=== PATIENT | female | born 1965 | race Caucasian/White ===

== ENCOUNTER → 2016-11-28 | Outpatient (CLI) | payer MEDICAID ==
--- NOTE | 2016-11-28 11:02 | MA ---
Screening Digital Mammogram Clinical Indications: Routine screening. Technique: Standard cephalocaudal and mediolateral oblique projections are obtained. This examinati on is processed by the [employer] computer aided detection system. Comparison: April 2015, June 2014 and April 2010 Breast density: B; There are scattered fibroglandular densities. Findings: CAD was reviewed. No suspicious findings are identified. Impression: Negative mammogram. . BI-RADS 1. Recommendation: Routine screening is recommended in one year. [facility] will send a result letter to the patient. Negative mammography should not preclude additional workup of a clinically suspicious finding. The patient's information is entered into a reminder system with a target due date for her next mammo gram.
== END ==
LOC: CIMAGING 09:59
DX: Z12.31 Encounter for screening mammogram for malignant neoplasm of breast (principal)
CPT/HCPCS: G0202

== ENCOUNTER 2017-07-05 17:42 | Emergency (ER) | payer MEDICAID ==
[2017-07-05 17:52] VITALS: RESP 16; TEMP 98.1
--- NOTE | 2017-07-05 17:54 | CPEKG ---
Heart Rate: 80 RR Interval: 750 P-R Interval: 180 QRSD Interval: 82 QT Interval: 368 QTC Interval: 425 P [place]: 38 QRS [place]: 25 T Wave [place]: 26 EKG Severity - BORDERLINE ECG - EKG Impression: SINUS RHYTHM EKG Impression: BORDERLINE T ABNORMALITIES, ANTERIOR LEADS Electronically Signed By: Preethi Moss 05-Jul-2017 18:42:57
[2017-07-05] MEDS ORDERED: NS 1,000 ML IV ONE (18:03)
[2017-07-05] MEDS ORDERED: ASPIRIN 81 MG CHEWABLE TAB PO ONE (18:03)
[2017-07-05 18:10] LABS: % IMMATURE GRANULYOCYTES 0.1 % (0.0-1.1); ABSOLUTE IMMATURE GRANULOCYTES 0.01 10^3/uL (0.00-0.10); ADD DIFF? NO; ADD MORPH? NO; ADD SCAN? NO; ATYPICAL LYMPHOCYTE FLAG 0 (0-99); FRAGMENT RBC FLAG 0 (0-99); HEMATOCRIT 42.5 % (38.0-47.0); HEMOGLOBIN 14.9 g/dL (12.6-16.3); LEFT SHIFT FLG 0 (0-99); LIPEMIA HEMOLYSIS FLAG 90 (0-99); MEAN CELL HEMOGLOBIN 31.2 pg (27.9-34.1); MEAN CELL HEMOGLOBIN CONCENTR. 35.1 g/dL (32.4-36.7); MEAN CELL VOLUME 89.1 fL (81.5-99.8); MEAN PLATELET VOLUME 9.1 fL (8.7-11.7); PLATELET CLUMPS FLAG 10 (0-99); PLATELET COUNT 302 10^3/uL (150-400); RED BLOOD CELL COUNT 4.77 10^6/uL (4.18-5.33); RED CELL DISTRIBUTION WIDTH 11.7 % (11.5-15.2)
--- NOTE | 2017-07-05 18:18 | EDPHY ---
H & P Stated Complaint: palpitations x 2 wk and near syncope yesterday Time Seen by Provider: 07/05/17 17:59 HPI/ROS: CHIEF COMPLAINT: Chest fluttering History by patient HISTORY OF PRESENT ILLNESS: 52 old woman with a history of hypertension presents complaining of a fluttery feeling in her chest which has been going on intermittently for the past 2 weeks. Yesterday she had an episode where she was unpacking a box and when she stood up she felt dizzy, felt that her heart was fluttering and she thought she was going to pass out. She had to sit down and rest for several minutes until she felt normal again. Sometimes when she gets this fluttery feeling she also feels like she can breathe properly. She denies any chest pain or pressure. She denies any leg pain or swelling. She has had no fever or cough. She has not taken her pulse when she has had the symptoms. Patient quit smoking more than 30 years ago. She has no first- degree relatives with heart disease, sudden or blood clotting. Patient walks 3 miles a day and does not get the symptoms with walking. She cannot identify any triggering factors. Patient and her both note that she has significant multiple social stressors including business difficulty, her unemployed without income and difficulties with her adult children. She says multiple family members including her sister and her mother have significant anxiety. Patient states she tried to go see her primary care physician about this however she was referred to the emergency department instead. REVIEW OF SYSTEMS: As in HPI, and all other systems reviewed and are negative Source: Patient, Family - Personal History LMP (Females 10-55): Post Menopausal - Medical/Surgical History Hx Asthma: No Hx Chronic Respiratory Disease: No Hx Diabetes: No Hx Cardiac Disease: No Hx Renal Disease: No Hx Cirrhosis: No Hx Alcoholism: No Hx HIV/AIDS: No Hx Splenectomy or Spleen Trauma: No Other PMH: HTN. Tonsils - Family History Significant Family History: No pertinent family hx - Social History Smoking Status: Never smoked - Physical Exam Exam: General Appearance: Alert, well-appearing. Eyes: Pupils equal and round no pallor or injection. ENT, Mouth: Mucous membranes moist. Respiratory: Normal, effort, lungs are clear to auscultation. No wheezes, rales or rhonchi. Cardiovascular: Regular rate and rhythm. S1, S2, no murmurs, gallops or rubs appreciated Gastrointestinal: Abdomen is soft and nontender, no masses, bowel sounds normal. Back: No CVA tenderness, no bony tenderness Neurological: Awake, alert and oriented x 3, no pronator drift, normal gait, no pronator drift Skin: Warm and dry, no rashes. Musculoskeletal: No deformities or tenderness. Extremitie:s full range of motion, no edema Psychiatric: Patient has normal affect, there is no agitation. Constitutional: Initial Vital Signs Temperature (C) 36.7 C 07/05/17 17:47 Heart Rate 86 07/05/17 17:47 Respiratory Rate 16 07/05/17 17:47 Blood Pressure 155/101 H 07/05/17 17:47 O2 Sat (%) 96 07/05/17 17:47 O2 Delivery Mode Room Air Allergies/Adverse Reactions: Penicillins Allergy (Verified 07/05/17 17:52) Home Medications: Medication Instructions Recorded [facility] 07/05/17 Medical Decision Making - Diagnostics EKG Interpretation: Normal sinus rhythm at a rate of 80 with normal axis, normal intervals and no nonspecific T-wave changes in the anterior leads but no evidence of acute ischemia. Imaging: I viewed and interpreted images myself ED Course/Re-evaluation: [age] old woman with hypertension presents complaining of ongoing palpitations and episode of near-syncope yesterday after standing. Patient was having symptoms today wall on the liaison inspection laboratory assistant which showed normal sinus rhythm at a rate in the 80s. ECG was unremarkable. Patient's labs were all within normal limits. A troponin was negative and given that her symptoms have been going on for several weeks and are not consistent with acute cardiac ischemia this rules out acute coronary syndromes. A D-dimer was negative ruling out pulmonary embolism in this patient with a low pretest probability. The patient is concerned that her symptoms may be related to anxiety and this is certainly a possibility. We discussed follow up with [facility] and/or other source of cognitive behavioral therapy for anxiety. I am also recommending close follow-up with her primary care physician. Patient understands and is agreeable to this plan. - Data Points Laboratory Results: Laboratory Results 07/05/17 17:56 07/05/17 17:56 07/05/17 07/05/17 07/05/17 17:56 17:56 17:56 WBC 8.88 10^3/uL 10^3/uL (3.80-9.50) RBC 4.77 10^6/uL 10^6/uL (4.18-5.33) Hgb 14.9 g/dL g/dL (12.6-16.3) Hct 42.5 % % (38.0-47.0) MCV 89.1 fL fL (81.5-99.8) MCH 31.2 pg pg (27.9-34.1) MCHC 35.1 g/dL g/dL (32.4-36.7) RDW 11.7 % % (11.5-15.2) Plt Count 302 10^3/uL 10^3/uL (150-400) MPV 9.1 fL fL (8.7-11.7) Neut % (Auto) 63.1 % % (39.3-74.2) Lymph % (Auto) 28.5 % % (15.0-45.0) [place] % (Auto) 6.3 % % (4.5-13.0) Eos % (Auto) 1.2 % % (0.6-7.6) Baso % (Auto) 0.8 % % (0.3-1.7) Nucleat RBC Rel Count 0.0 % % (0.0-0.2) Absolute Neuts (auto) 5.60 10^3/uL 10^3/uL (1.70-6.50) Absolute Lymphs (auto) 2.53 10^3/uL 10^3/uL (1.00-3.00) Absolute Monos (auto) 0.56 10^3/uL 10^3/uL (0.30-0.80) Absolute Eos (auto) 0.11 10^3/uL 10^3/uL (0.03-0.40) Absolute Basos (auto) 0.07 10^3/uL 10^3/uL (0.02-0.10) Absolute Nucleated RBC 0.00 10^3/uL 10^3/uL (0-0.01) Immature Gran % 0.1 % % (0.0-1.1) Immature Gran # 0.01 10^3/uL 10^3/uL (0.00-0.10) D-Dimer < 0.27 ug/mLFEU ug/mLFEU (0.00-0.50) Sodium 140 mEq/L mEq/L (134-144) Potassium 3.7 mEq/L mEq/L (3.5-5.2) Chloride 104 mEq/L mEq/L (97-110) Carbon Dioxide 21 mEq/l L mEq/l (22-31) Anion Gap 15 mEq/L mEq/L (8-16) BUN 23 mg/dL mg/dL (7-23) Creatinine 0.6 mg/dL mg/dL (0.6-1.0) Estimated GFR > 60 Glucose 101 mg/dL H mg/dL (70-100) Calcium 9.5 mg/dL mg/dL (8.5-10.4) Magnesium 2.1 mg/dL mg/dL (1.6-2.3) Troponin I < 0.012 ng/mL ng/mL (0.000-0.034) Medications Given: Discontinued Medications Aspirin (Aspirin) 324 mg PO EDNOW ONE Stop: 07/05/17 18:04 Last Admin: 07/05/17 18:12 Dose: 324 mg Sodium Chloride (Ns) 1,000 mls @ 0 mls/hr IV EDNOW ONE; Wide Open PRN Reason: Protocol Stop: 07/05/17 18:04 Last Admin: 07/05/17 18:15 Dose: 1,000 mls Departure - Departure Disposition: Home, Routine, Self-Care Clinical Impression: Palpitations, Anxiety Condition: Good Instructions: Palpitations (ED) Additional Instructions: You were seen by Dr. Preethi Moss today. All your tests were normal today and you are in a normal heart rhythm. Please follow-up with your primary care physician as soon as possible. Consider cognitive behavioral therapy for symptoms of anxiety. Try following up with [facility] for this. Return for any worsening or new concerns. Referrals: Idalia Ta PA [Primary Care Provider] - As per Instructions [facility],. [Clinic] - As per Instructions
[2017-07-05 18:22] LABS: ANION GAP 15 mEq/L (8-16); CALCIUM 9.5 mg/dL (8.5-10.4); CARBON DIOXIDE 21 mEq/l (22-31); CHLORIDE 104 mEq/L (97-110); CREATININE 0.6 mg/dL (0.6-1.0); GLOMERULAR FILTRATION RATE > 60; GLUCOSE 101 mg/dL (70-100); MAGNESIUM 2.1 mg/dL (1.6-2.3); POTASSIUM 3.7 mEq/L (3.5-5.2); SODIUM 140 mEq/L (134-144)
[2017-07-05 18:41] LABS: TROPONIN I < 0.012 ng/mL (0.000-0.034)
[2017-07-05 18:46] VITALS: BP 153/92; PULSE 76; O2SAT 94
== END 2017-07-05 19:15 | disposition home or self-care (01) ==
LOC: CED 17:42
DX: F41.9 Anxiety disorder, unspecified (principal); I10 Essential (primary) hypertension; E86.9 Volume depletion, unspecified
CPT/HCPCS: 71020-PO; 80048-PO; 83735-PO; 84484-PO; 85025-PO; 85378-PO